=== PATIENT | female | born 1955 | race Caucasian/White ===

== ENCOUNTER 2016-05-28 22:27 | Emergency (ER) | payer OTHER ==
--- NOTE | 2016-05-29 00:16 | DIAGNOSTIC IMAGING REPORT ---
PROCEDURE: ABDOMEN/PELVIS WITH CONTRAST CLINICAL INDICATION: ABDOMINAL PAIN TECHNIQUE: 125 ml of Isovue 300 were injected intravenously and axial images were obtained of the abdomen and pelvis with sagittal and coronal reformations. COMPARISON: None. FINDINGS: ABDOMEN: Clear lung bases. Normal sized heart. No hiatal hernia. The liver, adrenal glands, kidneys, pancreas and spleen are normal. The abdominal aorta is normal in its course and caliber. No atherosclerosis. There are no suspicious calcifications, retroperitoneal adenopathy or masses. The the stomach, small bowel loops, and upper mesentery are normal. Occasional transverse colon diverticula. A few diverticula in the proximal descending colon. Intact anterior abdominal wall. PELVIS: There is inflammation surrounding the distal descending and proximal sigmoid colon where there are multiple diverticula. There is extensive pericolonic inflammation as well as a few foci of extraluminal gas in the adjacent mesocolon. No layering free intraperitoneal air. No significant free fluid or focal fluid collection. The appendix and pelvic small bowel loops are normal. Normal amount of stool in the colon and rectum. The uterus, ovaries, urinary bladder, and pelvic vessels are normal. No adenopathy, free fluid, or pelvic mass. Intact osseous structures. IMPRESSION: 1. Contained perforation of acute diverticulitis in the distal descending/proximal sigmoid colon. No evidence of abscess. 2. Status post cholecystectomy. 3. Findings called to the emergency room. All CT scans at this facility use dose modulation, iterative reconstruction, and/or weight-based dosing when appropriate to reduce radiation dose to as low as reasonably achievable.
--- NOTE | 2016-05-29 00:58 | ED CLINICAL REPORT ---
Clinical Report - Physicians/Mid Levels [facility] [address] [place] [address] 05/28/2016 22:27 Patient: VINICIUS KIRKLAND Time Seen: 22:31; initial patient contact. Arrived- By private vehicle. Historian- patient. HISTORY OF PRESENT ILLNESS Chief Complaint: ABDOMINAL PAIN. At its maximum, severity described as moderate. When seen in the E.D., severity described as moderate. This started yesterday and is still present. It was gradual in onset and has been constant. It is described as "pain". No radiation. It is described as located in the lower abdomen and in the left lower quadrant. The patient has had nausea. No vomiting or diarrhea. Similar symptoms previously: None. Recent medical care: Not recently seen/assessed. REVIEW OF SYSTEMS No constipation, difficulty with urination, pain with urination, urinary frequency or fever. She has had chills. All systems otherwise negative, except as recorded above. PAST HISTORY Neck Pain. Gastroesophageal Reflux Disease. SURGERIES: Cholecystectomy. Tonsillectomy. SOCIAL HISTORY Current every day smoker. No alcohol use or drug use. ADDITIONAL NOTES The nursing notes have been reviewed. PHYSICAL EXAM Vital Signs: 05/28/2016 22:33 BP: 152/73. HR: 103. RR: 16. O2 saturation: 97%. Temp: 98.2 F. Pain level now: 9/10. Have been reviewed. Hypertensive. Tachycardic. Respiratory rate normal. Temperature normal. Oxygen saturation normal. Appearance: Alert. Oriented X3. No acute distress. Eyes: Eyes normal inspection. No scleral icterus. ENT: Dry mucous membranes present. Neck: Normal inspection. CVS: Tachycardia. Heart sounds normal. Rhythm normal. Respiratory: No respiratory distress. Breath sounds normal. Abdomen: Soft. Moderate tenderness in the suprapubic area and left lower quadrant with guarding present. No rebound tenderness or obturator or psoas sign present. Bowel sounds normal. No organomegaly. No mass. Back: Normal inspection. No CVA tenderness. Skin: Skin warm and dry. Normal skin color. Extremities: No lower extremity edema. Neuro: Oriented X 3. LABS, X-RAYS, AND EKG Abdominal CT: 1. Contained perforation of acute diverticulitis in the distal descending/proximal sigmoid colon. No evidence of abscess. 2. Status post cholecystectomy. Study type: abdomen and pelvis. Abdominal CT performed with IV contrast. The study was independently viewed by me, interpreted by the radiologist and discussed with the radiologist. Interpretation time: 0000. Laboratory Tests: UA-Culture if indicated: (SUZE: 05/28/2016 22:40) ( MsgRcvd 05/28/2016 23:08) Final results Test Result Flag Units (Reference) URINE COLOR YELLOW URINE APPEARANCE CLEAR URINE GLUCOSE NEGATIVE (NEGATIVE) URINE BILIRUBIN NEGATIVE (NEGATIVE) URINE KETONE NEGATIVE (NEGATIVE) URINE SPECIFIC GRAVITY 1.010 (1.010-1.030) URINE PH 7.0 (5.0-8.0) URINE PROTEIN NEGATIVE (NEGATIVE) URINE UROBILINOGEN 1.0 EU/dL (0.2-1.0) URINE NITRITE NEGATIVE (NEGATIVE) URINE BLOOD NEGATIVE (NEGATIVE) URINE LEUK ESTERASE NEGATIVE (NEGATIVE) URINE RBC 0-1 rbc/hpf (0-1) URINE WBC 0-1 wbc/hpf (0-1) URINE EPITHELIAL CELLS 0-1 EPI/hpf (0-5) URINE BACTERIA NONE SEEN (NONE SEEN) URINE COMMENT CULT NOT INDICATED URINE CULTURES ARE SET-UP BASED ON THE FOLLOWING CRITERIA:POSITIVE NITRITEPOSITIVE LEUKOCYTE ESTERASEGREATER THAN 10 WHITE BLOOD CELLSMODERATE (2+) OR GREATER BACTERIA CBC w Diff: (SUZE: 05/28/2016 22:40) ( WagRcvd 05/28/2016 23:02) Final results Test Result Flag Units (Reference) WHITE BLOOD COUNT 11.1 K/uL (4.5-11.5) RED BLOOD COUNT 4.41 M/uL (4.00-5.20) HEMOGLOBIN 14.1 gm/dL (12.0-16.0) HEMATOCRIT 42.4 % (36.0-46.0) MEAN CELL VOLUME 96 fL (80-100) MEAN CORPUSCULAR HGB 32 pg (26-34) MEAN CORPUSCULAR HGB CONC 33 g/dL (31-37) RED CELL DISTRIBUTION WIDTH 13.1 % (11.6-14.8) PLATELET COUNT 207 K/uL (150-400) LYMPH % 18.1 L % (25-40) MONO % 5.3 % (3-14) GRANULOCYTE % 76.6 (53-90) CMP: (SUZE: 05/28/2016 22:40) ( MsgRcvd 05/28/2016 23:25) Final results Test Result Flag Units (Reference) GLUCOSE 118 H mg/dL (70-110) BUN 8 mg/dL (7-18) CREATININE 0.8 mg/dL (0.6-1.3) Estimated GFR >60 mL/min Estimated GFR- >60 mL/min Note: Persistent reduction over 3 months in eGFR<60 mL/min/1.73 m2 defines CKD. Patients with eGFR values>=60 mL/min/1.73 m2 may also have CKD if evidence ofpersistent proteinuria. Additional information may be foundat www.kidney.org. SODIUM 142 mmol/L (136-145) POTASSIUM 3.5 mmol/L (3.5-5.1) CHLORIDE 105 mmol/L (98-107) CARBON DIOXIDE 28 mmol/L (21-32) CALCIUM 9.6 mg/dL (8.5-10.1) TOTAL PROTEIN 7.6 g/dL (6.4-8.2) ALBUMIN 4.1 g/dL (3.3-5.0) BILIRUBIN, TOTAL 0.6 mg/dL (0.0-1.0) ALKALINE PHOSPHATASE 112 U/L (46-116) AST (SGOT) 16 U/L (15-37) ALT (SGPT) 32 U/L (12-78) LIPASE 167 U/L (73-393) AMYLASE 35 U/L (25-115) . PROGRESS AND PROCEDURES Disposition: Discharged home in good and improved condition. Condition: good. CLINICAL IMPRESSION Acute diverticulitis of the colon with perforation. No bleeding, abscess, peritonitis or obstruction. INSTRUCTIONS Rest at home today and tomorrow. Drink plenty of fluids. Prescription Medications: Hydrocodone/APAP 5mg / 325mg: take 1 orally every 6 hours as needed for pain. Dispense fifteen (15). No refill. Zofran (orally disintegrating tablets) 4 mg: take 1 orally every 6 hours as needed for nausea and vomiting. Dispense ten (10). No refill. Substitution is permissible. Cipro 500 mg: take 1 tab orally every 12 hours for 7 days. No refills. Substitution is permissible. Flagyl 500 mg: Take 1 tablet orally every 8 hours for 7 days. No refill. Substitution is permissible Follow-up with: Efraín Almaraz MD, General Surgeon, , [facility], [address] [place] [address] Follow up in about three days. Call for an appointment. (Electronically signed by Vinayak Nowak Dr. 05/29/2016 1:00)
--- NOTE | 2016-05-29 00:58 | ED ORDER SUMMARY ---
..... Patient: VINICIUS KIRKLAND OrderSheet [facility] VisitID: [id number] [address] [place] [address] 60y, F Registration Date/Time: 05/28/2016 ORDER SHEET Weight: 74.8 kg Allergies: No Known Drug Allergy GENERAL ORDERS: CBC w Diff Urgent (22:54 05/28/2016 Brandie Alves) (Ack 22:54 aSndra) (22:55 TBowen R.N.) CMP Urgent (22:54 05/28/2016 Brandie Alves) (Ack 22:54 Sandra) (22:55 TBowen R.N.) UA-Culture if indicated Urgent (22:54 05/28/2016 Brandie Alves) (Ack 22:54 Sandra) (22:55 TBowen R.N.) Amylase Urgent (22:54 05/28/2016 Brandie Alves) (Ack 22:54 Sandra) (22:55 TBowen R.N.) Lipase Urgent (22:54 05/28/2016 Brandie Alves) (Ack 22:54 Sandra) (22:55 TBowen R.N.) CT Abd/Pel w Cont (No) (8/0.8) Urgent (23:36 05/28/2016 Brandie Alves) (Ack 23:39 Sandra) (0:03 Jacinto) MEDICATION ORDERS: Ciprofloxacin PO 500 mg (NOW) (00:28 05/29/2016 Brandie Alves) (0:38 TBowen R.N.) IV FLUIDS: IV NS : initial bolus none -, then 1000 mL/hr for X1 (NOW) (22:53 05/28/2016 Brandie Alves) (23:02 TBowen R.N.) Toradol IV 30 mg (NOW) (22:54 05/28/2016 Brandie Alves) (23:02 TBowen R.N.) Morphine IV 4 mg (HIGH ALERT MEDICATION, NOW) (23:50 05/28/2016 Brandie Alves) (0:01 TBowen R.N.) Flagyl IV 500 mg/100mL (NOW) (00:29 05/29/2016 Brandie Alves) (0:38 Huan Kaur) ORDER SHEET NOTES: [Electronically signed by Vinayak Nowak Dr. (01:00 05/29/2016)] [Electronically signed by Kemi Obrien R.N. (01:44 05/29/2016)] [Electronically locked/signed by Kemi Obrien R.N. (:44 05/29/2016)]
--- NOTE | 2016-05-29 00:58 | ED NURSING NOTES ---
Clinical Report - Nurses [facility] [address] [place] [address] 05/28/2016 22:27 Patient: VINICIUS KIRKLAND TRIAGE Triage time 22:33. Acuity: LEVEL 3. Chief Complaint: ABDOMINAL PAIN. --22:37 TonyaB, R.N. 22:33 05/28/16. BP: 152/73. HR: 103. RR: 16. O2 saturation: 97%. Temp: 98.2 F. Pain level now: 10/24. --22:37 TonyaB, R.N. Weight: 74.8 kg. Height/Length: 64 inches. BMI: 28.3. --22:34 TonyaB, R.N. Medications Nasacort Allergy 24HR Nasal. --22:35 TonyaB, R.N. Pepcid Oral. --22:35 TonyaB, R.N. Allergies No Known Drug Allergy. --22:35 TonyaB, R.N. History Arrived by private vehicle. Historian: patient. Accompanied by family. This started yesterday. ( pt states that abd pain and bloating started yesterday,). Treatment FEED BLENDER: Took ibuprofen. PAST MEDICAL HX: Immunizations: up-to-date. SOCIAL HX: Light tobacco smoker- less than 1/2 a pack per day. Occasional alcohol use. No drug use. Recent travel. She has had contact with a sick individual. No infectious disease exposure. SELF HARM ASSESSMENT: A self harm assessment was performed. The patient answered "no" to the question "Have you recently felt down, depressed, or hopeless?", "Have you noticed less interest or pleasure in doing things?", "Do you have thoughts of harming or killing yourself?", "Are you here because you tried to hurt yourself?", "Have you ever tried to hurt yourself before today?", "Have you recently had thoughts about harming or killing others?" and "Do you have any dangerous items in your possession?". FALL RISK ASSESSMENT: Fall risk assessment completed. No fall risk identified. NUTRITIONAL RISK ASSESSMENT: The nutritional risk assessment revealed no deficiencies. FUNCTIONAL ASSESSMENT: Functional assessment: no impairments noted. LEARNING NEEDS ASSESSMENT: The learning needs assessment revealed no barriers. SKIN INTEGRITY ASSESSMENT: Skin integrity risk assessment completed. No skin integrity risk identified. --22:37 Bari Pierce. PAST MEDICAL HX: The patient is post-menopausal. --22:38 Bari Pierce. PROBLEMS: Neck Pain. Gastroesophageal Reflux Disease. --22:36 Bari Pierce. ADDITIONAL SURGERIES: Cholecystectomy. Tonsillectomy. --22:36 Bari Pierce. Interventions ID band on patient. To treatment room. --22:37 Bari Pierce. PHYSICAL ASSESSMENT Ambulatory to room. GENERAL / NEURO / PSYCH: Alert. Oriented X 4. Appears in no acute distress. HEENT: Mucous membranes are pink. RESPIRATORY: Respirations not labored. Breath sounds within normal limits. CVS: Normal sinus rhythm noted. Capillary refill less than 2 seconds. GI / : Abdomen soft. Abdominal tenderness. Bowel sounds within normal limits. SKIN: Skin is warm and dry. --22:37 Bari Pierce. NURSING PROGRESS NOTES Patient gowned. Patient identifiers checked. Call light placed in reach. Side rails up x 1. Bed placed in lowest position. Brakes of bed on. --22:37 Vincent Pierce 22:38 05/28/2016 Site #1 started via IV in the left antecubital space with an 20g angiocath, with aseptic technique and good blood return; one attempt. Blood drawn: rainbow set. Labeled in the presence of the patient and sent to the lab. Saline lock flushed with 10 mL saline. --22:38 Bari Pierce. Patient ID band checked for patient name and birthdate: patient confirmed. Instructions provided to collect clean catch urine and patient verbalized understanding. Clean catch urine collected with return of yellow-colored urine; sample sent to lab. Specimen labeled in the presence of the patient. --22:49 Vincent Pierce 23:02 05/28/2016 Started bag #1 1000 mL IV Fluids IV NS (Saline); at 1000 mL/hr over 1 hour(s) via site #1 via IV pump. Allergies verified and confirmed 5 rights. IV patency established. IV site checked: no pain, redness, or swelling. IV flushed thoroughly pre- and post-medication administration. --23:02 Vincent Pierce 23:02 05/28/2016 Toradol IVP 30 mg given over 2 minute(s) via site #1. Allergies verified and confirmed 5 rights. IV patency established. IV site checked: no pain, redness, or swelling. IV flushed thoroughly pre- and post-medication administration. IVP given by RN. --23:02 Vincent Pierce Patient transported to PR by stretcher. (23:50). --23:50 Vincent Pierce 00:00 05/29/2016 Morphine IVP 4 mg given over 2 minute(s) via site #1. Allergies verified, confirmed 5 rights and sedative warning given to the patient. IV patency established. IV site checked: no pain, redness, or swelling. IV flushed thoroughly pre- and post-medication administration. IVP given by RN. --00:01 Vincent Pierce 00:01 05/29/16. BP: 142/76. HR: 82. RR: 16. O2 saturation: 99%. Pain level now 7/10. --00:01 Vincent Pierce 00:15 05/29/2016 IV Fluids IV NS Discontinued: bag #1 completed. Total amount infused: 1000 mL. IV patency established. IV site checked: no pain, redness, or swelling. IV flushed thoroughly. --00:15 Vincent Pierce 00:37 05/29/2016 Ciprofloxacin (Ciprofloxacin) PO 500 mg given. Allergies verified and confirmed 5 rights. --00:38 Vincent Pierce 00:38 05/29/2016 Started 500 mg of Flagyl (MetroNIDAZOLE in NaCl) IVPB in bag #1 100 mL; at 100 mL/hr over 1 hour(s) via site #1 via IV pump. Allergies verified and confirmed 5 rights. IV patency established. IV site checked: no pain, redness, or swelling. IV flushed thoroughly pre- and post-medication administration. --00:38 Vincent Pierce 01:35 05/29/2016 Flagyl IVPB Discontinued: bag #1 completed. Total amount infused: 100 mL. IV patency established. IV site checked: no pain, redness, or swelling. IV flushed thoroughly. --01:35 Vincent Pierce DISPOSITION / DISCHARGE 01:40 05/29/2016 Site #1 removed upon discharge. Catheter intact. Bandaid applied. --01:40 Vincent Pierce Departure time: 01:35. Condition at departure: improved. No learning barriers present. Discharge instructions provided and reviewed with the patient. Reviewed medication(s) side effects, precautions, dosing and course information. Prescription(s) given to the patient. Work note given. Follow up contact number. Patient verbalized understanding. Written instructions provided in [place] [employer]. No warning instructions, treatment instructions, referrals given to the patient, diet instructions or activity restrictions. No stop smoking instructions. The patient was discharged by the physician. She was discharged home and accompanied by spouse. She left the Emergency Department ambulatory and via private vehicle. Spouse driving. FALL RISK ASSESSMENT: Fall risk assessment completed. No fall risk identified. --01:44 Vincent Pierce 01:40 05/29/16. BP: 132/79. HR: 68. RR: 18. O2 saturation: 99%. Temp: deferred. Pain level now: 0/10. --01:44 Vincent Pierce Locked/Released at 05/29/2016 1:44 by Vincent Pierce
--- NOTE | 2016-05-29 00:58 | ED ORDER SUMMARY ---
..... Patient: VINICIUS KIRKLAND OrderSheet [facility] VisitID: [id number] [address] [place] [address] 60y, F Registration Date/Time: 05/28/2016 ORDER SHEET Weight: 74.8 kg Allergies: No Known Drug Allergy GENERAL ORDERS: CBC w Diff Urgent (22:54 05/28/2016 Brandie Alves) (Ack 22:54 Sandra) (22:55 TBowen R.N.) CMP Urgent (22:54 05/28/2016 Brandie Alves) (Ack 22:54 Sandra) (22:55 TBowen R.N.) UA-Culture if indicated Urgent (22:54 05/28/2016 Brandie Alves) (Ack 22:54 Sandra) (22:55 TBowen R.N.) Amylase Urgent (22:54 05/28/2016 Brandie Alves) (Ack 22:54 Sandra) (22:55 TBowen R.N.) Lipase Urgent (22:54 05/28/2016 Brandie Alves) (Ack 22:54 Sandra) (22:55 TBowen R.N.) CT Abd/Pel w Cont (No) (8/0.8) Urgent (23:36 05/28/2016 Brandie Alves) (Ack 23:39 Sandra) (0:03 Jacinto) MEDICATION ORDERS: Ciprofloxacin PO 500 mg (NOW) (00:28 05/29/2016 Brandie Alves) (0:38 TBowen R.N.) IV FLUIDS: IV NS : initial bolus none -, then 1000 mL/hr for X1 (NOW) (22:53 05/28/2016 Brandie Alves) (23:02 TBowen R.N.) Toradol IV 30 mg (NOW) (22:54 05/28/2016 Brandie Alves) (23:02 TBowen R.N.) Morphine IV 4 mg (HIGH ALERT MEDICATION, NOW) (23:50 05/28/2016 Brandie Alves) (0:01 TBowen R.N.) Flagyl IV 500 mg/100mL (NOW) (00:29 05/29/2016 Brandie Alves) (0:38 Huan Kaur) ORDER SHEET NOTES: [Electronically signed by Vinayak Nowak Dr. (01:00 05/29/2016)] [Electronically signed by Kemi Obrien R.N. (01:44 05/29/2016)] [Electronically locked/signed by Kemi Obrien R.N. (:44 05/29/2016)]
--- NOTE | 2016-05-29 00:58 | ED CLINICAL REPORT ---
Clinical Report - Physicians/Mid Levels [facility] [address] [place] [address] 05/28/2016 22:27 Patient: VINICIUS KIRKLAND Time Seen: 22:31; initial patient contact. Arrived- By private vehicle. Historian- patient. HISTORY OF PRESENT ILLNESS Chief Complaint: ABDOMINAL PAIN. At its maximum, severity described as moderate. When seen in the E.D., severity described as moderate. This started yesterday and is still present. It was gradual in onset and has been constant. It is described as "pain". No radiation. It is described as located in the lower abdomen and in the left lower quadrant. The patient has had nausea. No vomiting or diarrhea. Similar symptoms previously: None. Recent medical care: Not recently seen/assessed. REVIEW OF SYSTEMS No constipation, difficulty with urination, pain with urination, urinary frequency or fever. She has had chills. All systems otherwise negative, except as recorded above. PAST HISTORY Neck Pain. Gastroesophageal Reflux Disease. SURGERIES: Cholecystectomy. Tonsillectomy. SOCIAL HISTORY Current every day smoker. No alcohol use or drug use. ADDITIONAL NOTES The nursing notes have been reviewed. PHYSICAL EXAM Vital Signs: 05/28/2016 22:33 BP: 152/73. HR: 103. RR: 16. O2 saturation: 97%. Temp: 98.2 F. Pain level now: 9/10. Have been reviewed. Hypertensive. Tachycardic. Respiratory rate normal. Temperature normal. Oxygen saturation normal. Appearance: Alert. Oriented X3. No acute distress. Eyes: Eyes normal inspection. No scleral icterus. ENT: Dry mucous membranes present. Neck: Normal inspection. CVS: Tachycardia. Heart sounds normal. Rhythm normal. Respiratory: No respiratory distress. Breath sounds normal. Abdomen: Soft. Moderate tenderness in the suprapubic area and left lower quadrant with guarding present. No rebound tenderness or obturator or psoas sign present. Bowel sounds normal. No organomegaly. No mass. Back: Normal inspection. No CVA tenderness. Skin: Skin warm and dry. Normal skin color. Extremities: No lower extremity edema. Neuro: Oriented X 3. LABS, X-RAYS, AND EKG Abdominal CT: 1. Contained perforation of acute diverticulitis in the distal descending/proximal sigmoid colon. No evidence of abscess. 2. Status post cholecystectomy. Study type: abdomen and pelvis. Abdominal CT performed with IV contrast. The study was independently viewed by me, interpreted by the radiologist and discussed with the radiologist. Interpretation time: 0000. Laboratory Tests: UA-Culture if indicated: (SUZE: 05/28/2016 22:40) ( MsgRcvd 05/28/2016 23:08) Final results Test Result Flag Units (Reference) URINE COLOR YELLOW URINE APPEARANCE CLEAR URINE GLUCOSE NEGATIVE (NEGATIVE) URINE BILIRUBIN NEGATIVE (NEGATIVE) URINE KETONE NEGATIVE (NEGATIVE) URINE SPECIFIC GRAVITY 1.010 (1.010-1.030) URINE PH 7.0 (5.0-8.0) URINE PROTEIN NEGATIVE (NEGATIVE) URINE UROBILINOGEN 1.0 EU/dL (0.2-1.0) URINE NITRITE NEGATIVE (NEGATIVE) URINE BLOOD NEGATIVE (NEGATIVE) URINE LEUK ESTERASE NEGATIVE (NEGATIVE) URINE RBC 0-1 rbc/hpf (0-1) URINE WBC 0-1 wbc/hpf (0-1) URINE EPITHELIAL CELLS 0-1 EPI/hpf (0-5) URINE BACTERIA NONE SEEN (NONE SEEN) URINE COMMENT CULT NOT INDICATED URINE CULTURES ARE SET-UP BASED ON THE FOLLOWING CRITERIA:POSITIVE NITRITEPOSITIVE LEUKOCYTE ESTERASEGREATER THAN 10 WHITE BLOOD CELLSMODERATE (2+) OR GREATER BACTERIA CBC w Diff: (SUZE: 05/28/2016 22:40) ( NhgRcvd 05/28/2016 23:02) Final results Test Result Flag Units (Reference) WHITE BLOOD COUNT 11.1 K/uL (4.5-11.5) RED BLOOD COUNT 4.41 M/uL (4.00-5.20) HEMOGLOBIN 14.1 gm/dL (12.0-16.0) HEMATOCRIT 42.4 % (36.0-46.0) MEAN CELL VOLUME 96 fL (80-100) MEAN CORPUSCULAR HGB 32 pg (26-34) MEAN CORPUSCULAR HGB CONC 33 g/dL (31-37) RED CELL DISTRIBUTION WIDTH 13.1 % (11.6-14.8) PLATELET COUNT 207 K/uL (150-400) LYMPH % 18.1 L % (25-40) MONO % 5.3 % (3-14) GRANULOCYTE % 76.6 (53-90) CMP: (SUZE: 05/28/2016 22:40) ( MsgRcvd 05/28/2016 23:25) Final results Test Result Flag Units (Reference) GLUCOSE 118 H mg/dL (70-110) BUN 8 mg/dL (7-18) CREATININE 0.8 mg/dL (0.6-1.3) Estimated GFR >60 mL/min Estimated GFR- >60 mL/min Note: Persistent reduction over 3 months in eGFR<60 mL/min/1.73 m2 defines CKD. Patients with eGFR values>=60 mL/min/1.73 m2 may also have CKD if evidence ofpersistent proteinuria. Additional information may be foundat www.kidney.org. SODIUM 142 mmol/L (136-145) POTASSIUM 3.5 mmol/L (3.5-5.1) CHLORIDE 105 mmol/L (98-107) CARBON DIOXIDE 28 mmol/L (21-32) CALCIUM 9.6 mg/dL (8.5-10.1) TOTAL PROTEIN 7.6 g/dL (6.4-8.2) ALBUMIN 4.1 g/dL (3.3-5.0) BILIRUBIN, TOTAL 0.6 mg/dL (0.0-1.0) ALKALINE PHOSPHATASE 112 U/L (46-116) AST (SGOT) 16 U/L (15-37) ALT (SGPT) 32 U/L (12-78) LIPASE 167 U/L (73-393) AMYLASE 35 U/L (25-115) . PROGRESS AND PROCEDURES Disposition: Discharged home in good and improved condition. Condition: good. CLINICAL IMPRESSION Acute diverticulitis of the colon with perforation. No bleeding, abscess, peritonitis or obstruction. INSTRUCTIONS Rest at home today and tomorrow. Drink plenty of fluids. Prescription Medications: Hydrocodone/APAP 5mg / 325mg: take 1 orally every 6 hours as needed for pain. Dispense fifteen (15). No refill. Zofran (orally disintegrating tablets) 4 mg: take 1 orally every 6 hours as needed for nausea and vomiting. Dispense ten (10). No refill. Substitution is permissible. Cipro 500 mg: take 1 tab orally every 12 hours for 7 days. No refills. Substitution is permissible. Flagyl 500 mg: Take 1 tablet orally every 8 hours for 7 days. No refill. Substitution is permissible Follow-up with: Efraín Almaraz MD, General Surgeon, , [facility], [address] [place] [address] Follow up in about three days. Call for an appointment. (Electronically signed by Vinayak Nowak Dr. 05/29/2016 1:00)
--- NOTE | 2016-05-29 00:58 | ED NURSING NOTES ---
Clinical Report - [facility] [address] [place] [address] 05/28/2016 22:27 Patient: VINICIUS KIRKLAND TRIAGE Triage time 22:33. Acuity: LEVEL 3. Chief Complaint: ABDOMINAL PAIN. --22:37 TonyaB, R.N. 22:33 05/28/16. BP: 152/73. HR: 103. RR: 16. O2 saturation: 97%. Temp: 98.2 F. Pain level now: 10/24. --22:37 TonyaB, R.N. Weight: 74.8 kg. Height/Length: 64 inches. BMI: 28.3. --22:34 TonyaB, R.N. Medications Nasacort Allergy 24HR Nasal. --22:35 TonyaB, R.N. Pepcid Oral. --22:35 TonyaB, R.N. Allergies No Known Drug Allergy. --22:35 TonyaB, R.N. History Arrived by private vehicle. Historian: patient. Accompanied by family. This started yesterday. ( pt states that abd pain and bloating started yesterday,). 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 PAST MEDICAL HX: Immunizations: up-to-date. SOCIAL HX: Light tobacco smoker- less than 1/2 a pack per day. Occasional alcohol use. No drug use. Recent travel. She has had contact with a sick individual. No infectious disease exposure. SELF HARM ASSESSMENT: A self harm assessment was performed. The patient answered "no" to the question "Have you recently felt down, depressed, or hopeless?", "Have you noticed less interest or pleasure in doing things?", "Do you have thoughts of harming or killing yourself?", "Are you here because you tried to hurt yourself?", "Have you ever tried to hurt yourself before today?", "Have you recently had thoughts about harming or killing others?" and "Do you have any dangerous items in your possession?". FALL RISK ASSESSMENT: Fall risk assessment completed. No fall risk identified. NUTRITIONAL RISK ASSESSMENT: The nutritional risk assessment revealed no deficiencies. FUNCTIONAL ASSESSMENT: Functional assessment: no impairments noted. LEARNING NEEDS ASSESSMENT: The learning needs assessment revealed no barriers. SKIN INTEGRITY ASSESSMENT: Skin integrity risk assessment completed. No skin integrity risk identified. --22:37 Bari Pierce. PAST MEDICAL HX: The patient is post-menopausal. --22:38 Bari Pierce. PROBLEMS: Neck Pain. Gastroesophageal Reflux Disease. --22:36 Bari Pierce. ADDITIONAL SURGERIES: Cholecystectomy. Tonsillectomy. --22:36 Bari Pierce. Interventions ID band on patient. To treatment room. --22:37 Bari Pierce. PHYSICAL ASSESSMENT Ambulatory to room. GENERAL / NEURO / PSYCH: Alert. Oriented X 4. Appears in no acute distress. HEENT: Mucous membranes are pink. RESPIRATORY: Respirations not labored. Breath sounds within normal limits. CVS: Normal sinus rhythm noted. Capillary refill less than 2 seconds. GI / : Abdomen soft. Abdominal tenderness. Bowel sounds within normal limits. SKIN: Skin is warm and dry. --22:37 Bari Pierce. NURSING PROGRESS NOTES Patient gowned. Patient identifiers checked. Call light placed in reach. Side rails up x 1. Bed placed in lowest position. Brakes of bed on. --22:37 Vincent Pierce 22:38 05/28/2016 Site #1 started via IV in the left antecubital space with an 20g angiocath, with aseptic technique and good blood return; one attempt. Blood drawn: rainbow set. Labeled in the presence of the patient and sent to the lab. Saline lock flushed with 10 mL saline. --22:38 Bari Pierce. Patient ID band checked for patient name and birthdate: patient confirmed. Instructions provided to collect clean catch urine and patient verbalized understanding. Clean catch urine collected with return of yellow-colored urine; sample sent to lab. Specimen labeled in the presence of the patient. --22:49 Vincent Pierce 23:02 05/28/2016 Started bag #1 1000 mL IV Fluids IV NS (Saline); at 1000 mL/hr over 1 hour(s) via site #1 via IV pump. Allergies verified and confirmed 5 rights. IV patency established. IV site checked: no pain, redness, or swelling. IV flushed thoroughly pre- and post-medication administration. --23:02 Vincent Pierce 23:02 05/28/2016 Toradol IVP 30 mg given over 2 minute(s) via site #1. Allergies verified and confirmed 5 rights. IV patency established. IV site checked: no pain, redness, or swelling. IV flushed thoroughly pre- and post-medication administration. IVP given by RN. --23:02 Vincent Pierce Patient transported to [place] by stretcher. (23:50). --23:50 Vincent Pierce 00:00 05/29/2016 Morphine IVP 4 mg given over 2 minute(s) via site #1. Allergies verified, confirmed 5 rights and sedative warning given to the patient. IV patency established. IV site checked: no pain, redness, or swelling. IV flushed thoroughly pre- and post-medication administration. IVP given by RN. --00:01 Vincent Pierce 00:01 05/29/16. BP: 142/76. HR: 82. RR: 16. O2 saturation: 99%. Pain level now 7/10. --00:01 Vincent Pierce 00:15 05/29/2016 IV Fluids IV NS Discontinued: bag #1 completed. Total amount infused: 1000 mL. IV patency established. IV site checked: no pain, redness, or swelling. IV flushed thoroughly. --00:15 Vincent Pierce 00:37 05/29/2016 Ciprofloxacin (Ciprofloxacin) PO 500 mg given. Allergies verified and confirmed 5 rights. --00:38 Vincent Pierce 00:38 05/29/2016 Started 500 mg of Flagyl (MetroNIDAZOLE in NaCl) IVPB in bag #1 100 mL; at 100 mL/hr over 1 hour(s) via site #1 via IV pump. Allergies verified and confirmed 5 rights. IV patency established. IV site checked: no pain, redness, or swelling. IV flushed thoroughly pre- and post-medication administration. --00:38 Vincent Pierce 01:35 05/29/2016 Flagyl IVPB Discontinued: bag #1 completed. Total amount infused: 100 mL. IV patency established. IV site checked: no pain, redness, or swelling. IV flushed thoroughly. --01:35 Vincent Pierce DISPOSITION / DISCHARGE 01:40 05/29/2016 Site #1 removed upon discharge. Catheter intact. Bandaid applied. --01:40 Vincent Pierce Departure time: 01:35. Condition at departure: improved. No learning barriers present. Discharge instructions provided and reviewed with the patient. Reviewed medication(s) side effects, precautions, dosing and course information. Prescription(s) given to the patient. Work note given. Follow up contact number. Patient verbalized understanding. Written instructions provided in [place]. No warning instructions, treatment instructions, referrals given to the patient, diet instructions or activity restrictions. No stop smoking instructions. The patient was discharged by the physician. She was discharged home and accompanied by spouse. She left the Emergency Department ambulatory and via private vehicle. Spouse driving. FALL RISK ASSESSMENT: Fall risk assessment completed. No fall risk identified. --01:44 Vincent Pierce 01:40 05/29/16. BP: 132/79. HR: 68. RR: 18. O2 saturation: 99%. Temp: deferred. Pain level now: 0/10. --01:44 Vincent Pierce Locked/Released at 05/29/2016 1:44 by Vincent Pierce
--- NOTE | 2016-05-29 01:44 | ED MAR SUMMARY ---
..... Medication Administration Record [facility] [address] [place] [address] Patient: VINICIUS KIRKLAND Visit ID: [id number] 60y, F Weight: 74.8 kg Height/Length: 64 in BMI: 28.3 ALLERGIES: No Known Drug Allergy Start 23:02 05/28/2016 Bari Pierce., Stop 00:15 05/29/2016 Vincent Peirce Medication Administered: IV NS (SALINE), Dose: IV Fluids over 1 hour(s), Rate: 1000 mL/hr, Dispensed: 1000 mL bag, Site: #1 left AC. Medication Ordered: IV NS : initial bolus none -, then 1000 mL/hr for X1 (NOW). Given 23:02 05/28/2016 Vincent Pierce Medication Administered: TORADOL [IVP], Dose: 30 mg IVP over 2 minute(s), Site: #1 left AC. Medication Ordered: Toradol IV 30 mg (NOW). Given 00:00 05/29/2016 Vincent Pierce Medication Administered: MORPHINE [IVP], Dose: 4 mg IVP over 2 minute(s), Site: #1 left AC. Medication Ordered: Morphine IV 4 mg (HIGH ALERT MEDICATION, NOW). Given 00:37 05/29/2016 Vincent Pierce Medication Administered: CIPROFLOXACIN [PO] (CIPROFLOXACIN), Dose: 500 mg PO. Medication Ordered: Ciprofloxacin PO 500 mg (NOW). Start 00:38 05/29/2016 Bari Pierce., Stop 01:35 05/29/2016 Vincent Pierce Medication Administered: FLAGYL [IVPB] (METRONIDAZOLE IN NACL), Dose: 500 mg IVPB over 1 hour(s), Rate: 100 mL/hr, Dispensed: 100 mL bag, Site: #1 left AC. Medication Ordered: Flagyl IV 500 mg/100mL (NOW).
--- NOTE | 2016-05-29 01:44 | ED MAR SUMMARY ---
..... Medication Administration Record [facility] [address] [place] [address] Patient: VINICIUS KIRKLAND Visit ID: [id number] 60y, F Weight: 74.8 kg Height/Length: 64 in BMI: 28.3 ALLERGIES: No Known Drug Allergy Start 23:02 05/28/2016 Bari Pierce., Stop 00:15 05/29/2016 Vincent Pierce Medication Administered: IV NS (SALINE), Dose: IV Fluids over 1 hour(s), Rate: 1000 mL/hr, Dispensed: 1000 mL bag, Site: #1 left AC. Medication Ordered: IV NS : initial bolus none -, then 1000 mL/hr for X1 (NOW). Given 23:02 05/28/2016 Vincent Pierce Medication Administered: TORADOL [IVP], Dose: 30 mg IVP over 2 minute(s), Site: #1 left AC. Medication Ordered: Toradol IV 30 mg (NOW). Given 00:00 05/29/2016 Vincent Pierce Medication Administered: MORPHINE [IVP], Dose: 4 mg IVP over 2 minute(s), Site: #1 left AC. Medication Ordered: Morphine IV 4 mg (HIGH ALERT MEDICATION, NOW). Given 00:37 05/29/2016 Vincent Pierce Medication Administered: CIPROFLOXACIN [PO] (CIPROFLOXACIN), Dose: 500 mg PO. Medication Ordered: Ciprofloxacin PO 500 mg (NOW). Start 00:38 05/29/2016 Bari Pierce., Stop 01:35 05/29/2016 Vincent Pierce Medication Administered: FLAGYL [IVPB] (METRONIDAZOLE IN NACL), Dose: 500 mg IVPB over 1 hour(s), Rate: 100 mL/hr, Dispensed: 100 mL bag, Site: #1 left AC. Medication Ordered: Flagyl IV 500 mg/100mL (NOW).
--- NOTE | 2016-05-29 01:44 | ED DISCHARGE INSTRUCTIONS ---
Patient: VINICIUS KIRKLAND General Instructions [facility] VisitID: [id number] [address] [id number] 60y, F Registration Date/Time: 05/28/2016 Acute diverticulitis of the colon with perforation. No bleeding, abscess, peritonitis or obstruction. INSTRUCTIONS Rest at home today and tomorrow. Drink plenty of fluids. Prescription Medications: Hydrocodone/APAP 5mg / 325mg: take 1 orally every 6 hours as needed for pain. Dispense fifteen (15). No refill. Zofran (orally disintegrating tablets) 4 mg: take 1 orally every 6 hours as needed for nausea and vomiting. Dispense ten (10). No refill. Substitution is permissible. Cipro 500 mg: take 1 tab orally every 12 hours for 7 days. No refills. Substitution is permissible. Flagyl 500 mg: Take 1 tablet orally every 8 hours for 7 days. No refill. Substitution is permissible Follow-up with: Efraín Almaraz MD, General Surgeon, , [facility], [address] [place] [address] Follow up in about three days. Call for an appointment. ADDITIONAL INFORMATION Diverticulitis Some people develop pouches along the wall of the colon as they get older. The pouches,called diverticuli, usually cause no symptoms. If the pouches become blocked, an infection may occur known as diverticulitis. This causes lower abdominal pain and fever. If not treated, it can become a serious condition, causing an abscess to form inside the pouch. The abscess may block the instestinal tract even or rupture, spreading infection throughout the abdomen. When treatment is started early, oral antibiotics alone may be enough to cure diverticulitis. This method is tried first. However, if you do not improve or if your condition worsens while you are trying oral antibiotics, it will be necessary to admit you to the hospital for IV antibiotics. Severe cases may require surgery. Home care The following guidelines will help you care for your diverticulitis at home: During the acute illness, rest and follow a low-fiber diet: Foods to Include: flake cereal, mashed potatoes, pancakes, waffles, pasta, white bread, rice, applesauce, bananas, eggs, meat, fish, poultry, tofu, cooked vegetables. Take antibiotics exactly as directed. Do not miss any doses or stop taking the medication, even if you feel better. Monitor your temperature and report any rising temperature to your doctor. Preventing future attacks Once you have had an episode of diverticulitis, you are at risk of having a recurrence. After you have recovered from this episode, you may be able to reduce your risk by eating a high-fiber diet (2035 gm/day of fiber). This cleans out the colon pouches that already exist and prevent new ones from forming. Foods high in fiber includes fresh fruits and edible peelings, raw or lightly cooked vegetables, whole grain cereals and breads, dried beans and peas, bran. Follow-up care Follow up with your doctor as advised or sooner if you are not improving in the nexttwo days. When to seek medical care Get prompt medical attention if any of the following occur: Fever of 100.4F (38C) or higher, or as directed by your health care provider Repeated vomiting or swelling of the abdomen Weakness, dizziness, light-headedness Increasing abdominal pain that becomes severe or spreads to your back Pain that moves to the right lower abdomen Rectal bleeding (red, black or maroon color of the stools) Unexpected vaginal bleeding Hydrocodone Bitartrate, Acetaminophen Oral tablet What is this medicine? ACETAMINOPHEN; HYDROCODONE (a set a GARRY minesh fen; susu droe KOE done) is a pain reliever. It is used to treat mild to moderate pain. How should I use this medicine? Take this medicine by mouth. Swallow it with a full glass of water. Follow the directions on the prescription label. If the medicine upsets your stomach, take the medicine with food or milk. Do not take more than you are told to take. Talk to your software business analyst regarding the use of this medicine in children. This medicine is not approved for use in children. What side effects may I notice from receiving this medicine? Side effects that you should report to your doctor or health district manager primary care sales as soon as possible: allergic reactions like skin rash, itching or hives, swelling of the face, lips, or tongue breathing problems confusion feeling faint or lightheaded, falls stomach pain yellowing of the eyes or skin Side effects that usually do not require medical attention (report to your doctor or health district manager primary care sales if they continue or are bothersome): nausea, vomiting stomach upset What may interact with this medicine? alcohol antihistamines isoniazid medicines for depression, anxiety, or psychotic disturbances medicines for sleep muscle relaxants naltrexone narcotic medicines (opiates) for pain phenobarbital ritonavir tramadol What if I miss a dose? If you miss a dose, take it as soon as you can. If it is almost time for your next dose, take only that dose. Do not take double or extra doses. Where should I keep my medicine? Keep out of the reach of children. This medicine can be abused. Keep your medicine in a safe place to protect it from theft. Do not share this medicine with anyone. Selling or giving away this medicine is dangerous and against the law. Store at room temperature between 15 and 30 degrees C (59 and 86 degrees F). Protect from light. Keep container tightly closed. Throw away any unused medicine after the expiration date. Discard unused medicine and used packaging carefully. Pets and children can be harmed if they find used or lost packages. What should I tell my health care provider before I take this medicine? They need to know if you have any of these conditions: brain tumor Crohn's disease, inflammatory bowel disease, or ulcerative colitis drink more than 3 alcohol-containing drinks per day drug abuse or addiction head injury heart or circulation problems kidney disease or problems going to the bathroom liver disease lung disease, asthma, or breathing problems an unusual or allergic reaction to acetaminophen, hydrocodone, other opioid analgesics, other medicines, foods, dyes, or preservatives or trying to get breast-feeding What should I watch for while using this medicine? Tell your doctor or health district manager primary care sales if your pain does not go away, if it gets worse, or if you have new or a different type of pain. You may develop tolerance to the medicine. Tolerance means that you will need a higher dose of the medicine for pain relief. Tolerance is normal and is expected if you take the medicine for a long time. Do not suddenly stop taking your medicine because you may develop a severe reaction. Your body becomes used to the medicine. This does NOT mean you are addicted. Addiction is a behavior related to getting and using a drug for a non-medical reason. If you have pain, you have a medical reason to take pain medicine. Your doctor will tell you how much medicine to take. If your doctor wants you to stop the medicine, the dose will be slowly lowered over time to avoid any side effects. You may get drowsy or dizzy when you first start taking the medicine or change doses. Do not drive, use machinery, or do anything that may be dangerous until you know how the medicine affects you. Stand or sit up slowly. There are different types of narcotic medicines (opiates) for pain. If you take more than one type at the same time, you may have more side effects. Give your health care provider a list of all medicines you use. Your doctor will tell you how much medicine to take. Do not take more medicine than directed. Call emergency for help if you have problems breathing. The medicine will cause constipation. Try to have a bowel movement at least every 2 to 3 days. If you do not have a bowel movement for 3 days, call your doctor or health district manager primary care sales. Too much acetaminophen can be very dangerous. Do not take Tylenol (acetaminophen) or medicines that contain acetaminophen with this medicine. Many non-prescription medicines contain acetaminophen. Always read the labels carefully. Ondansetron Oral disintegrating tablet What is this medicine? ONDANSETRON (on BLAYNE se kwan) is used to treat nausea and vomiting caused by chemotherapy. It is also used to prevent or treat nausea and vomiting after surgery. How should I use this medicine? These tablets are made to dissolve in the mouth. Do not try to push the tablet through the foil backing. With dry hands, peel away the foil backing and gently remove the tablet. Place the tablet in the mouth and allow it to dissolve, then swallow. While you may take these tablets with water, it is not necessary to do so. Talk to your software business analyst regarding the use of this medicine in children. Special care may be needed. What side effects may I notice from receiving this medicine? Side effects that you should report to your doctor or health district manager primary care sales as soon as possible: allergic reactions like skin rash, itching or hives, swelling of the face, lips, or tongue breathing problems dizziness fast or irregular heartbeat feeling faint or lightheaded, falls fever and chills swelling of the hands and feet tightness in the chest Side effects that usually do not require medical attention (report to your doctor or health district manager primary care sales if they continue or are bothersome): constipation or diarrhea headache What may interact with this medicine? Do not take this medicine with any of the following medications: -apomorphine -cisapride -dofetilide -dronedarone -pimozide -thioridazine -ziprasidone This medicine may also interact with the following medications: -carbamazepine -phenytoin -rifampicin -tramadol -other medicines that prolong the QT interval (cause an abnormal heart rhythm) What if I miss a dose? If you miss a dose, take it as soon as you can. If it is almost time for your next dose, take only that dose. Do not take double or extra doses. Where should I keep my medicine? Keep out of the reach of children. Store between 2 and 30 degrees C (36 and 86 degrees F). Throw away any unused medicine after the expiration date. What should I tell my health care provider before I take this medicine? They need to know if you have any of these conditions: heart disease history of irregular heartbeat liver disease low levels of magnesium or potassium in the blood an unusual or allergic reaction to ondansetron, granisetron, other medicines, foods, dyes, or preservatives or trying to get breast-feeding What should I watch for while using this medicine? Check with your doctor or health district manager primary care sales as soon as you can if you have any sign of an allergic reaction. Ciprofloxacin Hydrochloride Oral tablet What is this medicine? CIPROFLOXACIN (sip tye FLOX a sin) is a quinolone antibiotic. It is used to treat certain kinds of bacterial infections. It will not work for colds, flu, or other viral infections. How should I use this medicine? Take this medicine by mouth with a glass of water. Follow the directions on the prescription label. Take your medicine at regular intervals. Do not take your medicine more often than directed. Take all of your medicine as directed even if you think your are better. Do not skip doses or stop your medicine early. You can take this medicine with food or on an empty stomach. It can be taken with a meal that contains dairy or calcium, but do not take it alone with a dairy product, like milk or yogurt or calcium-fortified juice. A special MedGuide will be given to you by the pharmacist with each prescription and refill. Be sure to read this information carefully each time. Talk to your software business analyst regarding the use of this medicine in children. Special care may be needed. What side effects may I notice from receiving this medicine? Side effects that you should report to your doctor or health district manager primary care sales as soon as possible: - allergic reactions like skin rash, itching or hives, swelling of the face, lips, or tongue - breathing problems - confusion, nightmares or hallucinations - feeling faint or lightheaded, falls - irregular heartbeat - joint, muscle or tendon pain or swelling - pain or trouble passing urine -persistent headache with or without blurred vision - redness, blistering, peeling or loosening of the skin, including inside the mouth - seizure - unusual pain, numbness, tingling, or weakness Side effects that usually do not require medical attention (report to your doctor or health district manager primary care sales if they continue or are bothersome): - diarrhea - nausea or stomach upset - white patches or sores in the mouth What may interact with this medicine? Do not take this medicine with any of the following medications: cisapride droperidol terfenadine tizanidine This medicine may also interact with the following medications: antacids caffeine cyclosporin didanosine (ddI) buffered tablets or powder medicines for diabetes medicines for inflammation like ibuprofen, naproxen methotrexate multivitamins omeprazole phenytoin probenecid sucralfate theophylline warfarin What if I miss a dose? If you miss a dose, take it as soon as you can. If it is almost time for your next dose, take only that dose. Do not take double or extra doses. Where should I keep my medicine? Keep out of the reach of children. Store at room temperature below 30 degrees C (86 degrees F). Keep container tightly closed. Throw away any unused medicine after the expiration date. What should I tell my health care provider before I take this medicine? They need to know if you have any of these conditions: -bone problems -cerebral disease -joint problems -irregular heartbeat -kidney disease -liver disease -myasthenia gravis -seizure disorder -tendon problems -an unusual or allergic reaction to ciprofloxacin, other antibiotics or medicines, foods, dyes, or preservatives - or trying to get -breast-feeding What should I watch for while using this medicine? Tell your doctor or health district manager primary care sales if your symptoms do not improve. Do not treat diarrhea with over the counter products. Contact your doctor if you have diarrhea that lasts more than 2 days or if it is severe and watery. You may get drowsy or dizzy. Do not drive, use machinery, or do anything that needs mental alertness until you know how this medicine affects you. Do not stand or sit up quickly, especially if you are an older patient. This reduces the risk of dizzy or fainting spells. This medicine can make you more sensitive to the sun. Keep out of the sun. If you cannot avoid being in the sun, wear protective clothing and use sunscreen. Do not use sun lamps or tanning beds/booths. Avoid antacids, aluminum, calcium, iron, magnesium, and zinc products for 6 hours before and 2 hours after taking a dose of this medicine. Metronidazole Oral tablet What is this medicine? METRONIDAZOLE (me troe NI da zole) is an antiinfective. It is used to treat certain kinds of bacterial and protozoal infections. It will not work for colds, flu, or other viral infections. How should I use this medicine? Take this medicine by mouth with a full glass of water. Follow the directions on the prescription label. Take your medicine at regular intervals. Do not take your medicine more often than directed. Take all of your medicine as directed even if you think you are better. Do not skip doses or stop your medicine early. Talk to your software business analyst regarding the use of this medicine in children. Special care may be needed. What side effects may I notice from receiving this medicine? Side effects that you should report to your doctor or health district manager primary care sales as soon as possible: allergic reactions like skin rash or hives, swelling of the face, lips, or tongue confusion, clumsiness difficulty speaking discolored or sore mouth dizziness fever, infection numbness, tingling, pain or weakness in the hands or feet trouble passing urine or change in the amount of urine redness, blistering, peeling or loosening of the skin, including inside the mouth seizures unusually weak or tired vaginal irritation, dryness, or discharge Side effects that usually do not require medical attention (report to your doctor or health district manager primary care sales if they continue or are bothersome): diarrhea headache irritability metallic taste nausea stomach pain or cramps trouble sleeping What may interact with this medicine? Do not take this medicine with any of the following medications: alcohol or any product that contains alcohol amprenavir oral solution cisapride disulfiram dofetilide dronedarone paclitaxel injection pimozide ritonavir oral solution sertraline oral solution sulfamethoxazole-trimethoprim injection thioridazine ziprasidone This medicine may also interact with the following medications: cimetidine lithium other medicines that prolong the QT interval (cause an abnormal heart rhythm) phenobarbital phenytoin warfarin What if I miss a dose? If you miss a dose, take it as soon as you can. If it is almost time for your next dose, take only that dose. Do not take double or extra doses. Where should I keep my medicine? Keep out of the reach of children. Store at room temperature below 25 degrees C (77 degrees F). Protect from light. Keep container tightly closed. Throw away any unused medicine after the expiration date. What should I tell my health care provider before I take this medicine? They need to know if you have any of these conditions: anemia or other blood disorders disease of the nervous system fungal or yeast infection if you drink alcohol containing drinks liver disease seizures an unusual or allergic reaction to metronidazole, or other medicines, foods, dyes, or preservatives or trying to get breast-feeding What should I watch for while using this medicine? Tell your doctor or health district manager primary care sales if your symptoms do not improve or if they get worse. You may get drowsy or dizzy. Do not drive, use machinery, or do anything that needs mental alertness until you know how this medicine affects you. Do not stand or sit up quickly, especially if you are an older patient. This reduces the risk of dizzy or fainting spells. Avoid alcoholic drinks while you are taking this medicine and for three days afterward. Alcohol may make you feel dizzy, sick, or flushed. If you are being treated for a sexually transmitted disease, avoid sexual contact until you have finished your treatment. Your sexual partner may also need treatment. You have been given the following additional information: Diverticulitis Hydrocodone Bitartrate, Acetaminophen Oral tablet Ondansetron Oral disintegrating tablet Ciprofloxacin Hydrochloride Oral tablet Metronidazole Oral tablet Rest at home today and tomorrow. (Electronically signed by Vinayak Nowak Dr. 05/29/2016 1:00)
--- NOTE | 2016-05-29 01:44 | ED MED RECONCILIATION SUMMARY ---
Patient: VINICIUS KIRKLAND Medication Reconciliation Report [facility] VisitID: [id number] [place] [address] 60y, F Registration Date/Time: 05/28/2016 Weight: 74.8 kg Height/Length: 64 in. BMI: 28.3 ALLERGIES: No Known Drug Allergy The patient's Home Medications are listed below: THE FOLLOWING MEDICATIONS NEED TO BE RECONCILED: Nasacort Allergy 24HR Nasal Pepcid Oral The source(s) of the original Home Medication information: Not obtained. The following Medications were given to the patient in the Emergency Department: IV NS IV Fluids bolus 0, then 1000 mL/hr, administered: 05/28/2016 11:02:00 PM Toradol [IVP] IVP 30 mg, administered: 05/28/2016 11:02:00 PM Morphine [IVP] IVP 4 mg, administered: 05/29/2016 12:00:00 AM Ciprofloxacin [PO] PO 500 mg, administered: 05/29/2016 12:37:00 AM Flagyl [IVPB] IVPB bolus 0, then 500 mg 100 mL/hr, administered: 05/29/2016 12:38:00 AM The following Medications were prescribed to the patient: Hydrocodone/APAP 5mg / 325mg: take 1 orally every 6 hours as needed for pain. Dispense fifteen (15). No refill. -- Vinayak Nowak Dr. Zofran (orally disintegrating tablets) 4 mg: take 1 orally every 6 hours as needed for nausea and vomiting. Dispense ten (10). No refill. Substitution is permissible. -- Vinayak Nowak Dr. Cipro 500 mg: take 1 tab orally every 12 hours for 7 days. No refills. Substitution is permissible. -- Vinayak Nowak Dr. Flagyl 500 mg: Take 1 tablet orally every 8 hours for 7 days. No refill. Substitution is permissible -- Vinayak Nowak Dr.
--- NOTE | 2016-05-29 01:44 | ED MED RECONCILIATION SUMMARY ---
Patient: VINICIUS KIRKLAND Medication Reconciliation Report [facility] VisitID: [id number] [place] [address] 60y, F Registration Date/Time: 05/28/2016 Weight: 74.8 kg Height/Length: 64 in. BMI: 28.3 ALLERGIES: No Known Drug Allergy The patient's Home Medications are listed below: THE FOLLOWING MEDICATIONS NEED TO BE RECONCILED: Nasacort Allergy 24HR Nasal Pepcid Oral The source(s) of the original Home Medication information: Not obtained. The following Medications were given to the patient in the Emergency Department: IV NS IV Fluids bolus 0, then 1000 mL/hr, administered: 05/28/2016 11:02:00 PM Toradol [IVP] IVP 30 mg, administered: 05/28/2016 11:02:00 PM Morphine [IVP] IVP 4 mg, administered: 05/29/2016 12:00:00 AM Ciprofloxacin [PO] PO 500 mg, administered: 05/29/2016 12:37:00 AM Flagyl [IVPB] IVPB bolus 0, then 500 mg 100 mL/hr, administered: 05/29/2016 12:38:00 AM The following Medications were prescribed to the patient: Hydrocodone/APAP 5mg / 325mg: take 1 orally every 6 hours as needed for pain. Dispense fifteen (15). No refill. -- Vinayak Nowak Dr. Zofran (orally disintegrating tablets) 4 mg: take 1 orally every 6 hours as needed for nausea and vomiting. Dispense ten (10). No refill. Substitution is permissible. -- Vinayak Nowak Dr. Cipro 500 mg: take 1 tab orally every 12 hours for 7 days. No refills. Substitution is permissible. -- Vinayak Nowak Dr. Flagyl 500 mg: Take 1 tablet orally every 8 hours for 7 days. No refill. Substitution is permissible -- Vinayak Nowak Dr.
== END 2016-05-29 01:35 | disposition home or self-care (01) ==
LOC: ED SRH 22:27
DX: K57.20 Diverticulitis of large intestine with perforation and abscess without bleeding (principal); K21.9 Gastro-esophageal reflux disease without esophagitis; F17.210 Nicotine dependence, cigarettes, uncomplicated
CPT/HCPCS: 90004; 90100; 92235; 92530; 95059

== ENCOUNTER 2016-05-30 20:17 | Emergency (ER) | payer OTHER ==
--- NOTE | 2016-05-30 22:14 | ED NURSING NOTES ---
Clinical Report - Nurses [facility] [address] [place] [address] 05/30/2016 20:17 Patient: VINICIUS KIRKLAND TRIAGE Triage time 20:44 May 30 2016. Acuity: LEVEL 4. Chief Complaint: SKIN LESION and TENDER AREA. Alert. No acute distress. --20:50 Yomaira Mcguire R.N. 20:44 05/30/16. BP: 147/99. HR: 86. RR: 18. O2 saturation: 100%. Temp: 98.2 F. Pain level now 5/10. --20:50 Yomaira Mcguire R.N. Weight: 74.8 kg stated. Height/Length: 64 inches Per Patient. BMI: 28.3. --20:44 Yomaira Mcguire R.N. Medications Nasacort Allergy 24HR Nasal. Pepcid Oral (generic corrigan brand). --20:48 Yomaira Mcguire R.N. Cipro Oral 500 mg, 2x a day. --21:15 Keon Akins R.N. Flagyl Oral 500 mg, 3x a day. --21:16 Keon Akins R.N. Medication/allergy information source: the patient. --20:50 Yomaira Mcguire R.N. Allergies No Known Drug Allergy. --20:48 Yomaira Mcguire R.N. History Arrived by private vehicle. Historian: patient. Primary physician ([facility]). ( Sores in mouth today, noticed around 1300. Started new meds for Diverticulitis. DX. here on . Filled RX Tuesday. Noticed sore today. Cipro, Flagyl, Zofran, and Vicodin.). This started today. She has recently taken medication. 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 PAST MEDICAL HX: Immunizations: up-to-date. Denies current . SOCIAL HX: Light tobacco smoker (cigarette)- less than 1/2 a pack per day. Occasional alcohol use. No drug use. NUTRITIONAL RISK ASSESSMENT: The nutritional risk assessment revealed no deficiencies. FUNCTIONAL ASSESSMENT: Functional assessment: no impairments noted. LEARNING NEEDS ASSESSMENT: The learning needs assessment revealed no barriers. SKIN INTEGRITY ASSESSMENT: Skin integrity risk assessment completed. No skin integrity risk identified. --20:50 Yomaira Mcguire R.N. PROBLEMS: Diverticulitis. Recent Travel. Sick Contact. Neck Pain. Gastroesophageal Reflux Disease. --20:48 Yomaira Mcguire R.N. ADDITIONAL SURGERIES: Cholecystectomy. Tonsillectomy. --20:48 Yomaira Mcguire R.N. Interventions ID band on patient. --20:50 Yomaira Mcguire R.N. PHYSICAL ASSESSMENT 21:16. Ambulatory to room. GENERAL / NEURO / PSYCH: Alert. Oriented X 4. HEENT: Mucous membranes are pink. RESPIRATORY: Respirations not labored. SKIN: Skin is intact, warm and dry. No skin rash. --21:16 Keon Akins R.N. NURSING PROGRESS NOTES 21:16. Head of bed elevated. Two patient identifiers checked. Call light placed in reach. Bed placed in lowest position. Brakes of bed on. Patient ready for evaluation- chart flagged. --21:17 Keon Akins R.N. 22:18. The patient is calm and resting quietly. RESPIRATORY: No respiratory distress. SKIN: Skin is warm and dry. Skin color within normal limits. --22:19 Keon Akins R.N. DISPOSITION / DISCHARGE Departure time: 22:19. Condition at departure: stable. ( Patient refused vitals - in a hurry to leave). No learning barriers present. Discharge instructions provided and reviewed with the patient. Reviewed medication(s) side effects, precautions, dosing and course information. Prescription(s) given to the patient. Patient verbalized understanding. Written instructions provided in Luxembourgish. The patient was discharged home and accompanied by spouse. She left the Emergency Department ambulatory and via private vehicle. Spouse driving. FALL RISK ASSESSMENT: Fall risk assessment completed. No fall risk identified. --22:19 Keon Akins R.N. Locked/Released at 05/30/2016 22:51 by Keon Akins R.N.
--- NOTE | 2016-05-30 22:14 | ED CLINICAL REPORT ---
Clinical Report - Physicians/Mid Levels [facility] [address] [place] [address] 05/30/2016 20:17 Patient: VINICIUS KIRKLAND Time Seen: 5; initial patient contact, initial documentation, patient care assumed. Arrived- By private vehicle. Historian- patient and significant other. HISTORY OF PRESENT ILLNESS Chief Complaint: MOUTH SORE. This started today and is still present and worsening. Pain described as moderate. No sore throat, nasal discharge or congestion, ear pain or toothache. She has had mouth sores. (has some mouth sores developing on inside of mouth on tongue, gums, inner lip and thinks it might be from the abx). Similar symptoms previously: None. Recent medical care: The patient was seen recently at this facility in the emergency department. ( txed here 05/28 for abd pain, dx with diverticulitis, rx zofran, hydrocodone, flagyl, and cipro). REVIEW OF SYSTEMS No fever, cough or difficulty breathing. All systems otherwise negative, except as recorded above. PAST HISTORY See nurses notes. PROBLEMS: Diverticulitis. Recent Travel. Sick Contact. Neck Pain. Gastroesophageal Reflux Disease. --20:48 Yomaira Mcguire R.N. ADDITIONAL SURGERIES: Cholecystectomy. Tonsillectomy. --20:48 Yomaira Mcguire R.N. SOCIAL HISTORY Light tobacco smoker. Occasional alcohol use. No drug use. No recent travel. Is a local resident. She lives with spouse. FAMILY HISTORY Negative. ADDITIONAL NOTES The nursing notes have been reviewed with agreement regarding the chief complaint, HPI, ROS, PMH and patient medications and allergies. PHYSICAL EXAM Vital Signs: 05/30/2016 20:44 BP: 147/99. HR: 86. RR: 18. O2 saturation: 100%. Temp: 98.2 F. Have been reviewed as abnormal and appear to be correct. Hypertensive. Heart rate normal. Respiratory rate normal. Temperature normal. Oxygen saturation normal. Appearance: Alert. No acute distress. Head: Normal external inspection. Eyes: Pupils equal, round and reactive to light. Conjunctivae and eyelids normal. ENT: Ears normal. Nose normal. Pharynx abnormal. Gums abnormal. A few tender mouth ulcerations present on the tongue, buccal surface, lips and gingivae (inside lips only, none on outside). No mouth ulcerations in the posterior pharynx or on the hard palate, soft palate or uvula. Lips normal. No trismus present. Uvula midline. Neck: Normal inspection. Trachea midline. No adenopathy. Thyroid normal. Neck supple. CVS: Normal heart rate and rhythm. Heart sounds normal. Pulses normal. Respiratory: No respiratory distress. Breath sounds normal. Chest nontender. Skin: Normal skin color. No rash. Normal skin turgor. Extremities: Extremities exhibit normal ROM. Extremities nontender. Neuro: Oriented X 3. No motor deficit. No sensory deficit. PROGRESS AND PROCEDURES Course of Care: 22:02 05/30/16. pt has cam, nothing alarming, see report for full details. Patient and spouse counseled in person regarding the patient's stable condition and diagnosis. Differential Diagnosis: Other possible considerations: herpetic gingivostomatitis, herpes, pharyngitis, allergic reaction, galdamez paresh syndrome. Above considerations are based on history and physical exam. Differential diagnosis was discussed with patient and patient's spouse. Disposition: Discharged home in good and unchanged condition (22:01). Condition: good and stable. CLINICAL IMPRESSION Herpetic gingivostomatitis INSTRUCTIONS (warm salt water gargles). Warnings: GENERAL WARNINGS: Return or contact your physician immediately if your condition worsens or changes unexpectedly, if not improving as expected, or if other problems arise. Specifically return if problem worsens. Prescription Medications: Viscous 2% Lidocaine 30 mL, Maalox 30 mL and Diphenhydramine (12.5 mL/5 mL) 30 mL. Swish, gargle, and spit 1-2 teaspoons every 6 hours as needed. Dispense ninety (90) mL. No refills Follow-up: Follow up with your doctor in about three days as needed. Call for an appointment. Summary of care provided to patient. Understanding of the discharge instructions verbalized by patient. (Electronically signed by Sylwia Rao A.R.N.P. 05/30/2016 23:20)
--- NOTE | 2016-05-30 22:14 | ED NURSING NOTES ---
Clinical Report - Nurses [facility] [address] [place] [address] 05/30/2016 20:17 Patient: VINICIUS KIRKLAND TRIAGE Triage time 20:44 May 30 2016. Acuity: LEVEL 4. Chief Complaint: SKIN LESION and TENDER AREA. Alert. No acute distress. --20:50 Yomaira Mcguire R.N. 20:44 05/30/16. BP: 147/99. HR: 86. RR: 18. O2 saturation: 100%. Temp: 98.2 F. Pain level now 5/10. --20:50 Yomaira Mcguire R.N. Weight: 74.8 kg stated. Height/Length: 64 inches Per Patient. BMI: 28.3. --20:44 Yomaira Mcguire R.N. Medications Nasacort Allergy 24HR Nasal. Pepcid Oral (generic corrigan brand). --20:48 Yomaira Mcguire R.N. Cipro Oral 500 mg, 2x a day. --21:15 Keon Akins R.N. Flagyl Oral 500 mg, 3x a day. --21:16 Keon Akins R.N. Medication/allergy information source: the patient. --20:50 Yomaira Mcguire R.N. Allergies No Known Drug Allergy. --20:48 Yomaira Mcguire R.N. History Arrived by private vehicle. Historian: patient. Primary physician ([facility] [place]). ( Sores in mouth today, noticed around 1300. Started new meds for Diverticulitis. DX. here on . Filled RX Tuesday. Noticed sore today. Cipro, Flagyl, Zofran, and Vicodin.). This started today. She has recently taken medication. 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 PAST MEDICAL HX: Immunizations: up-to-date. Denies current . SOCIAL HX: Light tobacco smoker (cigarette)- less than 1/2 a pack per day. Occasional alcohol use. No drug use. NUTRITIONAL RISK ASSESSMENT: The nutritional risk assessment revealed no deficiencies. FUNCTIONAL ASSESSMENT: Functional assessment: no impairments noted. LEARNING NEEDS ASSESSMENT: The learning needs assessment revealed no barriers. SKIN INTEGRITY ASSESSMENT: Skin integrity risk assessment completed. No skin integrity risk identified. --20:50 Yomaira Mcguire R.N. PROBLEMS: Diverticulitis. Recent Travel. Sick Contact. Neck Pain. Gastroesophageal Reflux Disease. --20:48 Yomaira Mcguire R.N. ADDITIONAL SURGERIES: Cholecystectomy. Tonsillectomy. --20:48 Yomaira Mcguire R.N. Interventions ID band on patient. --20:50 Yomaira Mcguire R.N. PHYSICAL ASSESSMENT 21:16. Ambulatory to room. GENERAL / NEURO / PSYCH: Alert. Oriented X 4. HEENT: Mucous membranes are pink. RESPIRATORY: Respirations not labored. SKIN: Skin is intact, warm and dry. No skin rash. --21:16 Keon Akins R.N. NURSING PROGRESS NOTES 21:16. Head of bed elevated. Two patient identifiers checked. Call light placed in reach. Bed placed in lowest position. Brakes of bed on. Patient ready for evaluation- chart flagged. --21:17 Keon Akins R.N. 22:18. The patient is calm and resting quietly. RESPIRATORY: No respiratory distress. SKIN: Skin is warm and dry. Skin color within normal limits. --22:19 Keon Akins R.N. DISPOSITION / DISCHARGE Departure time: 22:19. Condition at departure: stable. ( Patient refused vitals - in a hurry to leave). No learning barriers present. Discharge instructions provided and reviewed with the patient. Reviewed medication(s) side effects, precautions, dosing and course information. Prescription(s) given to the patient. Patient verbalized understanding. Written instructions provided in Serbian. The patient was discharged home and accompanied by spouse. She left the Emergency Department ambulatory and via private vehicle. Spouse driving. FALL RISK ASSESSMENT: Fall risk assessment completed. No fall risk identified. --22:19 Keon Akins R.N. Locked/Released at 05/30/2016 22:51 by Keon Akins R.N.
--- NOTE | 2016-05-30 23:21 | ED MAR SUMMARY ---
..... Medication Administration Record [facility] [address], [place] [id number] Patient: VINICIUS KIRKLAND Visit ID: [id number] 60y, F Weight: 74.8 kg Height/Length: 64 in BMI: 28.3 ALLERGIES: No Known Drug Allergy
--- NOTE | 2016-05-30 23:21 | ED MED RECONCILIATION SUMMARY ---
Patient: VINICIUS KIRKLAND Medication Reconciliation Report [facility] VisitID: [id number] [place] [address] 60y, F Registration Date/Time: 05/30/2016 Weight: 74.8 kg Height/Length: 64 in. BMI: 28.3 ALLERGIES: No Known Drug Allergy The patient's Home Medications are listed below: THE FOLLOWING MEDICATIONS NEED TO BE RECONCILED: Cipro Oral 500 mg, 2x a day Flagyl Oral 500 mg, 3x a day Nasacort Allergy 24HR Nasal Pepcid Oral, generic corrigan brand The source(s) of the original Home Medication information: patient The following Medications were given to the patient in the Emergency Department: None. The following Medications were prescribed to the patient: Viscous 2% Lidocaine 30 mL, Maalox 30 mL and Diphenhydramine (12.5 mL/5 mL) 30 mL. Swish, gargle, and spit 1-2 teaspoons every 6 hours as needed. Dispense ninety (90) mL. No refills -- Sylwia Rao A.R.N.P.
--- NOTE | 2016-05-30 23:21 | ED DISCHARGE INSTRUCTIONS ---
Patient: VINICIUS KIRKLAND General Instructions [facility] VisitID: [id number] [place] [address] 60y, F Registration Date/Time: 05/30/2016 Herpetic gingivostomatitis INSTRUCTIONS (warm salt water gargles). Warnings: GENERAL WARNINGS: Return or contact your physician immediately if your condition worsens or changes unexpectedly, if not improving as expected, or if other problems arise. Specifically return if problem worsens. Prescription Medications: Viscous 2% Lidocaine 30 mL, Maalox 30 mL and Diphenhydramine (12.5 mL/5 mL) 30 mL. Swish, gargle, and spit 1-2 teaspoons every 6 hours as needed. Dispense ninety (90) mL. No refills Follow-up: Follow up with your doctor in about three days as needed. Call for an appointment. Summary of care provided to patient. Understanding of the discharge instructions verbalized by patient. ADDITIONAL INFORMATION Gingivo-Stomatitis [Child] Gingivo-stomatitis is an infection affecting the gums, tongue, throat, tonsils or lining of the mouth. It causes swelling and small painful ulcers. There may be a fever. The cause of your infection may be viral or bacterial. Bacterial infections are treated with an antibiotic. Viral infections are treated only with comfort measures, since antibiotics won't be helpful. This infection should go away within 710 days. Home Care: For Mouth Sores: Use a local numbing solution such as Anbesol (comes in Baby, Regular and Maximum strength) for pain relief. If this is not available, you may use any numbing solution for teething babies. You may apply this directly to the sores with a cotton swab or with your finger. Use the numbing solution just before meals if eating is a problem. For Gum Sores: Use a cotton swab to apply Gly-Oxide (carbamide peroxide) to the gums four times a day. This is an [id number] antiseptic for the mouth. If this is not available, you may use half-strength hydrogen peroxide. Dilute 1/2 cup hydrogen peroxide with 1/2 cup water. For Mouth Or Gum Sores: Older children may rinse the mouth with warm salt water (1/2 teaspoon of salt in 1 glass of warm water). Give a soft diet with plenty of fluids to prevent dehydration. If your child doesn't want to eat solid foods, it's okay for a few days, as long as s/he drinks lots of fluid. Cool drinks and frozen treats (sherbet) are soothing and easier to take. Avoid citrus juices (orange juice, lemonade, etc.) and salty or spicy foods. These may cause more pain to the mouth sores. Use acetaminophen (Tylenol) for fever, fussiness or discomfort. In infants over six months of age, you may use ibuprofen (Children's Motrin) instead of Tylenol. (Aspirin should never be used in anyone under 18 years of age who is ill with a fever. It may cause severe liver damage.) Children should stay home until their fever is gone and they are eating and drinking well. Follow Up with your doctor as advised if there has been no improvement after five days. Get Prompt Medical Attention if any of the following occur: Unable to eat or drink due to mouth pain Trouble breathing or swallowing Fever of 100.4F (38C) oral or 101.4F (38.5C) rectal or higher, not better with fever medication Unusual fussiness, drowsiness or confusion or seizure No wet diapers for 8 hours, no tears when crying; sunken eyes or dry mouth You have been given the following additional information: Gingivo - Stomatitis (Child) (Electronically signed by Sylwia Rao A.R.N.P. 05/30/2016 23:20)
--- NOTE | 2016-05-30 23:21 | ED MAR SUMMARY ---
..... Medication Administration Record [facility] [address] [place], [place] [id number] Patient: VINICIUS KIRKLAND Visit ID: [id number] 60y, F Weight: 74.8 kg Height/Length: 64 in BMI: 28.3 ALLERGIES: No Known Drug Allergy
--- NOTE | 2016-05-30 23:21 | ED MED RECONCILIATION SUMMARY ---
Patient: VINICIUS KIRKLAND Medication Reconciliation Report [facility] VisitID: [id number] [place] [address] 60y, F Registration Date/Time: 05/30/2016 Weight: 74.8 kg Height/Length: 64 in. BMI: 28.3 ALLERGIES: No Known Drug Allergy The patient's Home Medications are listed below: THE FOLLOWING MEDICATIONS NEED TO BE RECONCILED: Cipro Oral 500 mg, 2x a day Flagyl Oral 500 mg, 3x a day Nasacort Allergy 24HR Nasal Pepcid Oral, generic corrigan brand The source(s) of the original Home Medication information: patient The following Medications were given to the patient in the Emergency Department: None. The following Medications were prescribed to the patient: Viscous 2% Lidocaine 30 mL, Maalox 30 mL and Diphenhydramine (12.5 mL/5 mL) 30 mL. Swish, gargle, and spit 1-2 teaspoons every 6 hours as needed. Dispense ninety (90) mL. No refills -- Sylwia Rao A.R.N.P.
== END 2016-05-30 22:19 | disposition home or self-care (01) ==
LOC: ED SRH 20:17
DX: B00.2 Herpesviral gingivostomatitis and pharyngotonsillitis (principal)